=== PATIENT | male | born 1960 | race Caucasian/White ===

== ENCOUNTER 2020-09-15 16:50 | Outpatient (RCR) | payer OTHER, SELFPAY ==
[2016-12-22 06:45] VITALS: BMI 31.9
[2020-09-15] MEDS: COVID-19 VACC, MRNA(PFIZER)/PF 30 MCG/0.3 ML SYRINGE IM (09:13)
[2020-10-06] MEDS: COVID-19 VACC, MRNA(PFIZER)/PF 30 MCG/0.3 ML SYRINGE IM (08:48)
== END 2020-12-08 23:59 ==
LOC: IMMUN 16:50
PROVIDERS: PCP Family Medicine; Visit Provider Family Medicine
DX: Z23 Encounter for immunization (principal)
CPT/HCPCS: 0001A; 0002A; 91300